=== PATIENT | female | born 1960 | race Caucasian/White ===

== ENCOUNTER 2016-10-29 11:15 | Emergency (ER) | payer MEDICARE, OTHER ==
--- NOTE | ~2016-10-29 | CT2 ---
[facility] A Service of [facility] RADIOLOGY TEXT RESULTS PATIENT: CAMILO CURTIS LOCATION: [facility] : 64 UNIT #: [id number] AGE: [address]: Jf Guerra MD SEX: F ORDER DR: [id number] [facility] [address] [place], [place] [address] [id number] MR#: [id number] Acc #: [id number] NAME: CAMILO CURTIS : 1960 SEX: F STUDY DATE/TIME: 10/29/2016 15:01 UNIT: [facility] ROOM: STUDY DESCRIPTION: CT Abd and Pelv W Cont Attending Physician: Prabhakar Guerra M.D. Ordering Physician: Jf Louise M.D. Primary Care Physician: Shelia Byrnes MEDICAL IMAGING REPORT This report is preliminary unless electronic signature is present EXAM CT of abdomen and pelvis, 10/29/2016. INDICATIONS Abdominal pain and vomiting for the last 3 days. TECHNIQUE Axial images were obtained through the abdomen and pelvis following IV contrast administration. Multiplanar reformats were obtained. Comparison made with 06/08/15. This CT exam was performed with one or more of the following radiation dose reduction techniques: automatic exposure control, adjustment of mA and/or kV according to patient size, and iterative reconstruction. FINDINGS ABDOMEN: There are some tree-in-bud opacities in the left lower lobe which appear infectious or inflammatory. Gallbladder surgically absent. There is no biliary obstruction. There is fatty atrophy of the pancreas. Solid organs are otherwise unremarkable. The unopacified GI tract is normal. No free fluid. No adenopathy. PELVIS: The appendix is surgically absent. The unopacified GI tract is otherwise unremarkable. Urinary bladder is normal. Solid pelvic organs are normal. Patient is status post L4 through S1 fusion. IMPRESSION 1. No acute findings in the abdomen or pelvis. 2. Other changes of appendectomy, the unopacified GI tract is normal. 3. Cholecystectomy and lumbosacral fusion. 4. Appendectomy. Dictated by... [facility] A Service of [facility] RADIOLOGY TEXT RESULTS PATIENT: CAM[facility] CUR[id number] [birth year] UNIT #: [id number] AGE: [address]: Jf Guerra MD SEX: F ORDER DR: Isaac Sebastian Jr., M.D. THIS IS AN ELECTRONICALLY VERIFIED REPORT Isaac Sebastian Jr., M.D. at 10/29/2016 7:01 PM RAJI/cristo TD: 10/29/2016 18:33 JOB #: [id number] MEDICAL IMAGING REPORT Page 1 of 1 COPY
[~2016-10-29 11:15] MED LIST: ALAVERT10 MG PO; ALPRAZOLAM; ALPRAZOLAM PO; AMBIEN; ASPIRIN PO; ASPIRIN81 M1 PO; ASPIRIN81 M2 PO; B12 SUBQ; BACLOFEN10 MG PO; BACLOFEN20 M1 PO; BENADRYL25 M1 PO; BENTYL20 MG PO; BUSPAR PO; CHANTIX PO; CLARITIN10 MG PO; COL-RITE250 MG PO; COLACE PO; COMBIVENT INH14.7 GM INH; COMBIVENT U/D3 M2 INH; COMBIVENT14.7 GM INH; CYMBALTA PO; CYMBALTA20 MG PO; CYMBALTA30 MG PO; DAZIDOX10 MG PO; DESYREL50 MG PO; DIAZEPAM10 MG PO; DULOXETINE HCL30 MG PO; EFFEXOR XR; FLEXERIL; FOLIC ACID PO; HYDROXYZINE HCL50 MG PO; K-DUR20 ME1 PO; KCL; LANSOPRAZOLE30 M2 PO; LEVAQUIN750 MG PO; LEXAPRO PO; LIDODERM30 EA TOP; LINZESS145 MCG PO; LIPITOR; LYRICA PO; MELATONIN10 M1 PO; MORPHINE SULFAT60 MG; MORPHINE SULFAT60 MG PO; MS CONTIN60 M1 PO; MS CONTIN60 MG PO; MUCINEX DM ER1 EACH PO; MYCOSTATIN POWD15 GM EXT; OMEPRAZOLE20 M2 PO; OMEPRAZOLE40 MG PO; ORAMORPH SR60 MG PO; OXYCODONE HCL10 MG PO; OXYCONTIN; OXYGEN; PEPCID AC20 M2 PO; PERCOCET 10/3251 TAB PO; PERCOCET10 PO; PERCOLONE5 MG; PHENERGAN; PHENERGAN25 M1 PO; PHENERGAN25 MG PO; PRILOSEC PO; PRILOSEC40 MG PO; PROAIR HFA8.5 GM IH; PROCTOZONE-HC30 G2 RC; PROTONIX PO; REGLAN10 MG PO; SEROQUEL25 MG PO; SEROQUEL50 M1 PO; SEROQUEL50 MG PO; SPIRIVA18 MCG IN; SPIRIVA18 MCG INH; TEMAZEPAM PO; TYLOX1 CAP 5/50 PO; VALIUM10 MG PO; VISTARIL50 MG PO; VITAMIN B-1000 MCG/1 IJ; VITAMIN D2000 UNIT PO; ZEGERID40 MG/PKT; ZOFRAN ODT4 MG PO; ZOFRAN PO
[2016-10-29 12:13] LABS: BASOPHIL# 0.1 X10e3 (0-0.3); BASOPHIL% 0.3 % (0-2.5); HEMATOCRIT 41.4 % (35.0-45.0); HEMOGLOBIN 13.3 gm/dL (12.0-16.0); LYMPHOCYTE# 1.8 X10e3 (1.0-3.5); LYMPHOCYTE% 7.5 % (17.0-45.0); MEAN CELL VOLUME 84.8 FL (83-96); MEAN CORPUSCULAR HEMOGLOBIN 27.2 PG (28-34); MEAN CORPUSCULAR HGB CONC 32.1 g/dL (30-36); MEAN PLATELET VOLUME 9.9 FL (6.5-11.5); MONOCYTE# 2.7 X10e3 (0-1.0); NEUTROPHIL% 81.2 % (40-75); PLATELET COUNT 117 X10e3 (140-420); RED BLOOD COUNT 4.88 X10e (3.90-5.30); RED CELL DISTRIBUTION WIDTH 15.4 % (11.0-15.5); WHITE BLOOD COUNT 24.6 X10e3 (4.0-10.5)
[2016-10-29 12:14] LABS: DIFF IND YES
[2016-10-29 12:18] LABS: ALBUMIN SERUM 3.5 g/dL (3.5-5.0); BILIRUBIN, DIRECT 0.3 mg/dL (0.0-0.2); BILIRUBIN,INDIRECT 0.7 mg/dL (0.0-0.9); BUN/CREATININE RATIO 17.5; CALCIUM SERUM 8.7 mg/dL (8.4-10.2); CREATININE SERUM 0.8 mg/dL (0.6-1.4); GLOM FILT RATE Estimated 83.7 mL/min (>60); POTASSIUM 3.3 mmol/L (3.5-5.1); PROTEIN TOTAL SERUM 7.1 g/dL (6.0-8.3)
[2016-10-29 13:04] LABS: ANISOCYTOSIS SL; PLATELET ESTIMATE DECREASED (NORMAL)
[2016-10-29] MEDS ORDERED: MUCUS RELIEF D1 EACH PO (14:41)
[2016-10-29] MEDS ORDERED: RESTORIL15 MG PO (14:43)
[2016-10-29 16:40] LABS: URINE SOURCE CLEAN CATCH
[2016-10-29 17:08] LABS: URINE APPEARANCE CLEAR; URINE BILIRUBIN NEG (NEG); URINE BLOOD 2+ (NEG); URINE COLOR YELLOW; URINE GLUCOSE NEG (NEG); URINE KETONE NEG (NEG); URINE LEUKOCYTE ESTERASE NEG (NEG); URINE NITRATE NEG (NEG); URINE PROTEIN TRACE (NEG); URINE SPECIFIC GRAVITY 1.061 (1.003-1.035)
[2016-10-29 17:12] LABS: CULTURE INDICATED? NO
[2016-10-29 17:14] LABS: URBCS1 AUWI 0-2 /[HPF] (0-2)
[2016-10-29 17:15] LABS: URINE SQUAMOUS EPITHELIAL CELL OCCAS /[HPF]
[2016-11-05] MEDS ORDERED: REGLAN10 MG PO (13:30)
[2016-11-05] MEDS ORDERED: MELATONIN10 M1 PO (13:42)
[2016-11-05] MEDS ORDERED: BENTYL20 MG PO (13:50)
[2016-11-05] MEDS ORDERED: PRILOSEC PO (13:50)
[2016-11-05] MEDS ORDERED: FLOVENT7.9 GM INH (13:51)
[2016-11-05] MEDS ORDERED: COMBIVENT RESPIM4 GM INH (13:51)
[2016-11-05] MEDS ORDERED: ALBUTEROL MININEB NEB (13:52)
[2016-11-05] MEDS ORDERED: OXYGEN ×2 (13:53)
[2016-11-14] MEDS ORDERED: MORPHINE SULFAT60 MG PO (01:55)
[2016-11-14] MEDS ORDERED: OXYCODONE HCL10 MG PO (01:56)
[2016-11-14] MEDS ORDERED: VALIUM10 MG PO (01:57)
[2016-11-14] MEDS ORDERED: PHENERGAN25 M1 PO (01:57)
[2016-11-14] MEDS ORDERED: ASPIRIN81 M2 PO (01:59)
[2016-11-14] MEDS ORDERED: ATARAX PO (01:59)
[2016-11-14] MEDS ORDERED: ZANAFLEX PO (01:59)
== END 2016-10-29 17:27 | disposition home or self-care (01) ==
LOC: CED 11:15
PROVIDERS: Emergency Medicine
DX: R11.2 Nausea with vomiting, unspecified (principal); R10.84 Generalized abdominal pain; Z88.5 Allergy status to narcotic agent; Z88.0 Allergy status to penicillin; Z91.09 Other allergy status, other than to drugs and biological substances; Z88.7 Allergy status to serum and vaccine; Z79.899 Other long term (current) drug therapy; Z79.82 Long term (current) use of aspirin
CPT/HCPCS: 36415; 74177; 80048; 80076; 81003; 83690; 85025; 96361; 96374; 96375; 96376; 99284; J1170; J2405; Q9967

== ENCOUNTER → 2016-11-14 | Day surgery (SDC) | payer MEDICARE, OTHER ==
[~2016-11-14] MED LIST changes: +ALBUTEROL MININEB NEB; +ATARAX PO; +COMBIVENT RESPIM4 GM INH; +FLOVENT7.9 GM INH; +MUCUS RELIEF D1 EACH PO; +RESTORIL15 MG PO; +ZANAFLEX PO
--- NOTE | ~2016-11-14 | OR ---
Unit #: [id number] #: [id number] Patient: CAMILO CURTIS [id number] [address] [address] [id number] O MR#: [id number] NAME: CAMILO CURTIS. ROOM: Date of Procedure: 11/14/2016 Admission Date: 11/14/2016 Surgeon: Gagan Valera M.D. : 1960 Attending Physician: Gagan Valera M.D. Primary Care Physician: Generic Doctor Not In System OPERATIVE REPORT PROCEDURE PERFORMED Esophagogastroduodenoscopy with biopsy. INDICATIONS FOR PROCEDURE The patient with significant epigastric pain and GERD symptoms, undergoing evaluation with upper endoscopy. MEDICATIONS Monitored anesthesia. POSTOPERATIVE FINDINGS 1. Small hiatal hernia. 2. Chronic appearing gastritis, most prominent antrum, biopsies taken. 3. Normal duodenum and distal duodenum. PLAN Follow up on the pathology report. Continue with PPIs. DESCRIPTION OF PROCEDURE The patient was explained of the procedure, risks, and benefits along with risks and benefits of anesthesia. She was brought to the endoscopy room. Propofol anesthesia was given. Bite block was placed. The scope was passed down the mouth into the esophagus, stomach, duodenum, and distal duodenum. Findings as described. Biopsies taken. Gently, I pulled the scope out of the patient's mouth. She tolerated it well. Dictated by... Cindy Craft/michael TD: 11/14/2016 22:17 JOB #: [id number] Unit #: [id number] #: [id number] Patient: CAMILO CURTIS OPERATIVE REPORT Page 1 of 1 X Gagan Valera MD X PROCEDURE OPERATIVE NOTE
== END | disposition home or self-care (01) ==
LOC: COPS 07:30
DX: K29.50 Unspecified chronic gastritis without bleeding (principal); K44.9 Diaphragmatic hernia without obstruction or gangrene; J44.9 Chronic obstructive pulmonary disease, unspecified; K21.9 Gastro-esophageal reflux disease without esophagitis; G89.29 Other chronic pain; M54.5 Low back pain; Z87.442 Personal history of urinary calculi; Z88.5 Allergy status to narcotic agent; Z88.7 Allergy status to serum and vaccine; Z91.048 Other nonmedicinal substance allergy status; Z79.82 Long term (current) use of aspirin; Z79.891 Long term (current) use of opiate analgesic; Z79.899 Other long term (current) drug therapy; Z90.49 Acquired absence of other specified parts of digestive tract; Z99.81 Dependence on supplemental oxygen
CPT/HCPCS: 88305; 88312; J3010